=== PATIENT | female | born 1990 | race Caucasian/White ===

== ENCOUNTER 2022-08-23 12:11 | Emergency (ER) | payer BC ==
[~2022-08-23] VITALS: Ht 165.1 cm; Wt 64.4 kg
[~2022-08-23 12:11] MED LIST: LIALDA; PROZAC
[2022-08-23] MEDS ORDERED: ONDANSETRON 4 MG/2 ML VIAL IV ONE ×2 (13:00→14:15)
[2022-08-23] MEDS ORDERED: IV NORMAL SALINE 1000 ML BAG IV ONE ×2 (13:00→14:30)
[2022-08-23 13:15] LABS: HEMATOCRIT 36.8 % (31.2-41.9); MEAN CORPUSCULAR HEMOGLOBIN 29.4 uug (24.7-32.8); MEAN CORPUSCULAR VOLUME 87.8 fL (75.5-95.3); PLATELET COUNT (AUTO) 246 K/uL (179-408)
[2022-08-23 13:17] LABS: *BILIRUBIN,URIN NEGATIVE (NEGATIVE); *BLOOD, URINE NEGATIVE (NEGATIVE); *CLARITY,URINE CLEAR (CLEAR); *COLOR,URINE YELLOW (YELLOW); *KETONES,URINE NEGATIVE (NEGATIVE); *UROBILINOGEN,URINE 0.2 E.U./dl (NORMAL); LEUKOCYTE ESTERASE ,URINE NEGATIVE (NEGATIVE); NITRITE, URINE NEGATIVE (NEGATIVE); UGLUCOSE NEGATIVE (NEGATIVE)
[2022-08-23 13:19] LABS: *URINE HCG, QUAL NEGATIVE (NEGATIVE)
[2022-08-23] MEDS ORDERED: ONDANSETRON 4 MG/2 ML VIAL ONE ×2 (13:24→14:19)
[2022-08-23 13:32] LABS: BILIRUBIN,DIRECT 0.1 mg/dL (0.0-0.2); BILIRUBIN,TOTAL 0.5 mg/dL (0.2-1.0); CREATININE 0.7 mg/dL (0.6-1.3); TOTAL PROTEIN, SERUM 6.3 g/dL (6.4-8.2)
[2022-08-23] MEDS ORDERED: AZITHROMYCIN 250 MG TABLET ONE (14:10)
[2022-08-23] MEDS ORDERED: POTASSIUM CHLORIDE 20 MEQ TAB.PRT.SR ONE (14:10)
[2022-08-23] MEDS ORDERED: MORPHINE SULFATE 4 MG/1 ML DISP.SYRIN IV ONE ×2 (14:15→15:45)
[2022-08-23] MEDS ORDERED: AZITHROMYCIN 250 MG TABLET PO ONE (14:15)
[2022-08-23] MEDS ORDERED: POTASSIUM CHLORIDE 20 MEQ TAB.PRT.SR PO ONE (14:15)
[2022-08-23] MEDS ORDERED: MORPHINE SULFATE 4 MG/1 ML DISP.SYRIN ONE ×2 (14:19→15:50)
[2022-08-23] MEDS ORDERED: METR500T PO (16:22)
[2022-08-23] MEDS ORDERED: CIPR-262 PO (16:22)
[2022-08-23] MEDS ORDERED: ONDA4TAB5 PO (16:24)
[2022-08-23] MEDS ORDERED: HYDR-3972 PO (16:24)
--- NOTE | 2022-08-23 16:54 | NUR ---
IV removed. Catheter intact and site benign. Pressure and 4x4 gauze applied to site. No bleeding noted.
--- NOTE | 2022-08-23 16:54 | NUR ---
Patient discharged to home in stable condition with family. Written and verbal after care instructions given. Patient verbalizes understanding of instructions. Stressed follow up or return to ER for worsening s/s.
--- NOTE | 2022-09-05 11:13 | NUR ---
Late Entry: NS 1L IVPB RAC 20G, start time 08/23/22 1423- end time 08/23/22 1523
== END 2022-08-23 16:57 | disposition home or self-care (01) ==
LOC: ER 12:11
DX: K51.90 Ulcerative colitis, unspecified, without complications (principal); R11.10 Vomiting, unspecified; E87.6 Hypokalemia; M54.50 Low back pain, unspecified; R51.9 Headache, unspecified; Z20.822 Contact with and (suspected) exposure to COVID-19; Z97.5 Presence of (intrauterine) contraceptive device; N83.201 Unspecified ovarian cyst, right side; Z88.1 Allergy status to other antibiotic agents
CPT/HCPCS: 99285; 74176; 96374; 96361 ×2; 96375; 87426; 87804 ×2; 80076; 80048; 81003; 84703; 83690; 85025; 36415; 96376; J2405 ×2; J2270 ×2; J7040 ×2; Q0144